=== PATIENT | male | born 1985 | race Caucasian/White ===

== ENCOUNTER 2020-10-07 19:54 | Emergency (ER) | payer OTHER ==
[2020-10-07] MEDS ORDERED: Lidocaine 2% w/Epinephrine 1:200K 20 ML VIAL ONE (20:05)
[2020-10-07] MEDS ORDERED: Sodium Chloride Irrig Solution 250 ML ONE (21:07)
== END 2020-10-07 20:58 | disposition home or self-care (01) ==
LOC: MADERS 19:54
DX: S61.411A Laceration without foreign body of right hand, initial encounter (principal); F17.220 Nicotine dependence, chewing tobacco, uncomplicated; W26.0XXA Contact with knife, initial encounter
CPT/HCPCS: 12001